=== PATIENT | male | born 1950 | race Caucasian/White ===

== ENCOUNTER 2023-01-13 14:22 | Inpatient (IN) | payer OTHER ==
[~2023-01-13] VITALS: Ht 175.3 cm; Wt 98.0 kg
[2023-01-13 14:25] VITALS: BP_SYST 89; PULSE 81; RESP 17; TEMP 98.4; O2SAT 88
[2023-01-13] MEDS ORDERED: NACL 0.9% 1,000 ML IV ONE (14:45)
[2023-01-13] MEDS ORDERED: ATROPINE SULFATE 1 MG/10 ML SYRINGE IVP ONE ×2 (14:45→14:46)
[2023-01-13 14:56] LABS: BASOPHILS % (AUTO) 0.1 % (0.0-2.0); EOSINOPHILS % (AUTO) 0.1 % (0.0-4.0); HEMATOCRIT 40.9 % (36-54); HEMOGLOBIN 13.4 g/dL (14.0-18.0); LYMPHOCYTES # (AUTO) 0.5 K/uL (1.0-5.5); LYMPHOCYTES % (AUTO) 5.3 % (20.5-51.5); MEAN CORPUSCULAR HEMOGLOBIN 28 pg (27-31); MEAN CORPUSCULAR HGB CONC 33 % (32-36); MEAN CORPUSCULAR VOLUME 86 fL (79.0-98.0); MONOCYTES # (AUTO) 0.2 K/uL (0.0-1.0); MONOCYTES % (AUTO) 1.6 % (1.7-9.3); NEUTROPHILS % (AUTO) 92.9 % (40.0-70.0); PLATELET COUNT (AUTO) 149 K/uL (130-430); RED BLOOD CELL COUNT(AUTO) 4.79 MIL/uL (4.2-6.2); RED CELL DISTRIBUTION WIDTH 14.8 % (9.0-15.0); WHITE BLOOD COUNT (AUTO) 9.7 K/uL (4.8-10.8)
[2023-01-13 15:07] LABS: ANION GAP 11 (5-15); CALCIUM 8.8 mg/dL (8.4-11.0); CHLORIDE 102 mmol/L (98-107); GLUCOSE 188 mg/dL (74-106); UREA NITROGEN, BLOOD 31 mg/dL (8-21)
[2023-01-13 15:13] LABS: ALANINE AMINOTRANSFERASE 23 U/L (12-78); ALBUMIN 3.9 g/dL (3.4-4.8); ASPARTATE AMINOTRANSFERASE 10 U/L (10-37); LIPASE 57 U/L (73-393); TOTAL BILIRUBIN 0.6 mg/dL (0.0-1.0)
[2023-01-13] MEDS ORDERED: NOR10 PO (15:21)
[2023-01-13] MEDS ORDERED: ROSU20TA2 PO (15:21)
[2023-01-13] MEDS ORDERED: ZETIA (15:21)
[2023-01-13] MEDS ORDERED: LISI20TA30 PO (15:21)
[2023-01-13] MEDS ORDERED: METO25TA6 PO (15:21)
[2023-01-13] MEDS ORDERED: CALCIUM GLUCONATE 2 GM in NS 100 ML IV ONE (15:45)
[2023-01-13] MEDS ORDERED: GLUCAGON,HUMAN RECOMBINANT 1 MG VIAL IVP ONE (15:45)
[2023-01-13 19:04] VITALS: BP_SYST 112; PULSE 65; RESP 22; TEMP 98.9; O2SAT 96
[2023-01-13] MEDS ORDERED: LORazepam 2 MG/ML VIAL IVP PRN (19:45)
[2023-01-13] MEDS ORDERED: HYDROcodone/ACETAMIN 5-325 MG TAB (NORCO/ VICODIN) PO PRN (19:45)
[2023-01-13] MEDS ORDERED: NALOXONE HCL 0.4 MG/ML AMP (NARCAN) IVP PRN ×2 (19:45)
[2023-01-13] MEDS ORDERED: ONDANSETRON HCL 4 MG/2 ML VIAL IVP PRN (19:45)
[2023-01-13] MEDS ORDERED: ACETAMINOPHEN 325 MG TABLET PO PRN ×2 (19:45→20:00)
[2023-01-13] MEDS ORDERED: HYDROcodone/ACETAMIN 10-325 MG TAB PO PRN (19:45)
[2023-01-13 20:00] VITALS: BP_SYST 127; PULSE 62; RESP 16; TEMP 98.7; O2SAT 95
[2023-01-13] MEDS: EZETIMIBE 10 MG TABLET PO SCH (21:00)
[2023-01-13] MEDS: lisinopriL 20 MG TABLET PO SCH (21:00)
[2023-01-13] MEDS ORDERED: ROSUVASTATIN CALCIUM 5 MG/TAB (CRESTOR) PO SCH (21:00)
[2023-01-13] MEDS: ATORVASTATIN 20 MG TABLET PO SCH (21:00)
[2023-01-13] MEDS ORDERED: LOSA100T23 PO (21:11)
[2023-01-13] MEDS ORDERED: HYG25 PO (21:12)
[2023-01-13] MEDS ORDERED: METF-379 PO (21:13)
[2023-01-13] MEDS: NORMAL SALINE 5 ML DISP.SYRIN IVF SCH (21:33)
[2023-01-14] VITALS (9 sets, daily range): BP systolic 102–157; PULSE 57–69; RESP 16–20; TEMP 97.8–99; O2SAT 91–97
[2023-01-14 04:50] LABS: BASOPHILS % (AUTO) 0.1 % (0.0-2.0); HEMATOCRIT 36.7 % (36-54); HEMOGLOBIN 12.1 g/dL (14.0-18.0); LYMPHOCYTES # (AUTO) 0.6 K/uL (1.0-5.5); MEAN CORPUSCULAR HEMOGLOBIN 28 pg (27-31); MEAN CORPUSCULAR HGB CONC 33 % (32-36); MEAN CORPUSCULAR VOLUME 86 fL (79.0-98.0); MONOCYTES # (AUTO) 0.3 K/uL (0.0-1.0); MONOCYTES % (AUTO) 3.6 % (1.7-9.3); NEUTROPHILS % (AUTO) 88.3 % (40.0-70.0); PLATELET COUNT (AUTO) 122 K/uL (130-430); RED BLOOD CELL COUNT(AUTO) 4.28 MIL/uL (4.2-6.2); RED CELL DISTRIBUTION WIDTH 14.5 % (9.0-15.0)
[2023-01-14 05:18] LABS: ANION GAP 9 (5-15); CALCIUM 8.4 mg/dL (8.4-11.0); CHLORIDE 103 mmol/L (98-107); CREATININE 1.01 mg/dL (0.55-1.30); GLUCOSE 120 mg/dL (74-106); PHOSPHORUS 4.7 mg/dL (2.7-4.5); THYROID STIMULATING HORMONE 1.14 uIu/mL (0.34-4.82); UREA NITROGEN, BLOOD 34 mg/dL (8-21)
[2023-01-14] MEDS: NORMAL SALINE 5 ML DISP.SYRIN IVF SCH ×3 (06:26→22:00)
[2023-01-14] MEDS: EZETIMIBE 10 MG TABLET PO SCH (20:34)
[2023-01-14] MEDS: ATORVASTATIN 20 MG TABLET PO SCH (20:35)
[2023-01-14] MEDS: lisinopriL 20 MG TABLET PO SCH (20:35)
[2023-01-15 05:28] LABS: BASOPHILS % (AUTO) 0.1 % (0.0-2.0); EOSINOPHILS % (AUTO) 0.1 % (0.0-4.0); HEMOGLOBIN 12.2 g/dL (14.0-18.0); LYMPHOCYTES # (AUTO) 0.9 K/uL (1.0-5.5); LYMPHOCYTES % (AUTO) 12.2 % (20.5-51.5); MEAN CORPUSCULAR HEMOGLOBIN 28 pg (27-31); MEAN CORPUSCULAR HGB CONC 33 % (32-36); MEAN CORPUSCULAR VOLUME 85 fL (79.0-98.0); MONOCYTES # (AUTO) 0.5 K/uL (0.0-1.0); MONOCYTES % (AUTO) 6.2 % (1.7-9.3); NEUTROPHILS # (AUTO) 6.3 K/uL (1.8-7.7); NEUTROPHILS % (AUTO) 81.4 % (40.0-70.0); PLATELET COUNT (AUTO) 113 K/uL (130-430); RED BLOOD CELL COUNT(AUTO) 4.38 MIL/uL (4.2-6.2); RED CELL DISTRIBUTION WIDTH 14.4 % (9.0-15.0); WHITE BLOOD COUNT (AUTO) 7.7 K/uL (4.8-10.8)
[2023-01-15 05:48] LABS: ALANINE AMINOTRANSFERASE 10 U/L (12-78); ALBUMIN 3.2 g/dL (3.4-4.8); ANION GAP 8 (5-15); ASPARTATE AMINOTRANSFERASE 8 U/L (10-37); CALCIUM 8.6 mg/dL (8.4-11.0); CHLORIDE 104 mmol/L (98-107); CREATININE 0.88 mg/dL (0.55-1.30); GLUCOSE 118 mg/dL (74-106); TOTAL BILIRUBIN 0.7 mg/dL (0.0-1.0); UREA NITROGEN, BLOOD 32 mg/dL (8-21)
[2023-01-15 06:01] LABS: INR 1.1 (0.80-1.20); PROTHROMBIN TIME 11.6 SECS (9.5-12.5)
[2023-01-15] MEDS: NORMAL SALINE 5 ML DISP.SYRIN IVF SCH (06:12)
[2023-01-15 08:00] VITALS: BP_SYST 151; PULSE 62; RESP 20; TEMP 98.7; O2SAT 91
== END 2023-01-15 09:50 | disposition short-term general hospital (02) | DRG 315 ==
LOC: SED 14:22 → SMU 16:52 → STU 18:50
PROVIDERS: ADMIT Preventive Medicine Preventive Medicine/Occupational Environmental Medicine; ATTEND Preventive Medicine Preventive Medicine/Occupational Environmental Medicine
DX: I95.9 Hypotension, unspecified (principal); E44.0 Moderate protein-calorie malnutrition; I24.9 Acute ischemic heart disease, unspecified; R00.1 Bradycardia, unspecified; E78.5 Hyperlipidemia, unspecified; I25.10 Atherosclerotic heart disease of native coronary artery without angina pectoris; I10 Essential (primary) hypertension; R06.03 Acute respiratory distress; E87.6 Hypokalemia; E88.09 Other disorders of plasma-protein metabolism, not elsewhere classified; E11.65 Type 2 diabetes mellitus with hyperglycemia; E86.0 Dehydration; R79.89 Other specified abnormal findings of blood chemistry; Z86.73 Personal history of transient ischemic attack (TIA), and cerebral infarction without residual deficits; Z79.899 Other long term (current) drug therapy; Z68.31 Body mass index [BMI] 31.0-31.9, adult
CPT/HCPCS: 36415; 70450-TC; 71045; 76376; 80048; 80053; 83690; 83735; 83880; 84100; 84443; 84484; 85025; 85610-TC; 85730-TC; 93005; 93306; 96361; 96365; 96375; 99291; G0378; J0461; J0610; J1610; J7030

== ENCOUNTER 2023-08-14 18:04 | Emergency (ER) | payer MEDICARE, OTHER ==
[~2023-08-14] VITALS: Ht 185.4 cm; Wt 99.8 kg
[~2023-08-14 18:04] MED LIST: HYG25 PO; LISI20TA30 PO; LOSA100T24 PO; METF-379 PO; METO25TA6 PO; NOR10 PO; ROSU20TA2 PO; ZETIA
[2023-08-14] MEDS ORDERED: GENT5DRO7 EACH EYE (19:20)
[2023-08-14] MEDS ORDERED: NAPH15DR52 EACH EYE (19:20)
[2023-08-14] MEDS: IBUPROFEN 600 MG TABLET PO ONE (19:32)
[2023-08-14 19:45] VITALS: BP_SYST 150; PULSE 98; RESP 18; TEMP 98.7; O2SAT 99
[2023-08-14 20:08] VITALS: BP_SYST 150; PULSE 98; RESP 16; TEMP 98.7; O2SAT 99
== END 2023-08-14 20:10 | disposition home or self-care (01) ==
LOC: SED 18:04
DX: H10.213 Acute toxic conjunctivitis, bilateral (principal); I10 Essential (primary) hypertension; Z79.899 Other long term (current) drug therapy
CPT/HCPCS: 99284